=== PATIENT | female | born 1970 | race Caucasian/White ===

== ENCOUNTER 2019-01-13 08:16 | Outpatient (CLI) | payer OTHER ==
--- NOTE | 2019-01-13 14:49 | Ultrasound Report ---
Reason: RIGHT UPPER QUADRANT PAIN Procedure Date: 01/13/2019 Accession Number: [id number] / [id number] Procedure: US - Abdomen Limited CPT Code: FULL RESULT: EXAM: ABDOMEN ULTRASOUND LIMITED, RUQ EXAM DATE: 01/13/2019 08:54 AM. CLINICAL HISTORY: Right upper quadrant pain 3-4 weeks. COMPARISON: None. TECHNIQUE: Real-time scanning was performed with static images obtained. FINDINGS: Liver: The right lobe is mild to moderately echogenic with respect to the right kidney. No focal mass or abnormal blood flow. A Sonja's lobe noted. The right lobe measures 16.7 cm. Main portal vein flow: Hepatopetal. Gallbladder: Normal. No stones, wall thickening, or sonographic Oliver's sign. Biliary System: CBD measures 7 mm. Mild extra hepatic biliary ductal dilatation noted but no obstructing stone or mass visualized. Other: Right kidney measured 11.8 cm and shows no hydronephrosis. No ascites. IMPRESSION: 1. Mild to moderate hepatic fatty infiltration. 2. Mildly prominent common bile duct measuring 7 mm without visualized obstructing stone or mass. 3. Normal gallbladder. [facility]
--- NOTE | 2019-01-14 10:41 | XRAY Report ---
Reason: RIGHT UPPER QUADRANT PAIN Procedure Date: 01/13/2019 Accession Number: [id number] / [id number] Procedure: XR - Chest 2 View X-Ray CPT Code: 58817 FULL RESULT: EXAM: CHEST RADIOGRAPHY EXAM DATE: 01/13/2019 09:02 AM. CLINICAL HISTORY: Right upper quadrant pain. COMPARISON: None. TECHNIQUE: 2 views. FINDINGS: Lungs/Pleura: No focal opacities evident. No pleural effusion. No pneumothorax. Normal volumes. Mediastinum: Heart and mediastinal contours are unremarkable. Other: None. IMPRESSION: Normal 2-view chest radiography. [facility]
== END 2019-01-13 08:17 | disposition home or self-care (01) ==
LOC: DI 08:16
PROVIDERS: ATTEND Nurse Practitioner Family
DX: R10.11 Right upper quadrant pain (principal); K76.0 Fatty (change of) liver, not elsewhere classified
CPT/HCPCS: 71046; 76705

== ENCOUNTER 2023-08-14 16:58 | Outpatient (CLI) | payer BC, OTHER ==
--- NOTE | 2023-08-14 18:04 | XRAY Report ---
PROCEDURE: Knee 3 View RT INDICATIONS: CONTUSION OF RIGHT KNEE TECHNIQUE: 3 views of the knee(s) were acquired. COMPARISON: None. FINDINGS: Bones: There is subtle cortical lucency in the anterior tibial plateau, without displacement Soft tissues: Large knee joint effusion. No suspicious soft tissue calcifications or masses. IMPRESSION: Subtle cortical lucency in the anterior to a plateau, at the site of pain. Large knee joint effusion. Findings are concerning for a minimally displaced fracture. Consider CT for confirmation. Reviewed by: Roberto Nicole on 08/14/2023 5:03 PM [facility] Approved by: Roberto Nicole on 08/14/2023 5:03 PM [facility] Station ID: [id number]
== END 2023-08-14 23:59 | disposition home or self-care (01) ==
LOC: DI.S 16:58
PROVIDERS: ATTEND Physician Assistant Medical
DX: S80.01XA Contusion of right knee, initial encounter (principal); M25.461 Effusion, right knee; R93.6 Abnormal findings on diagnostic imaging of limbs

== ENCOUNTER 2023-08-21 16:32 | Outpatient (CLI) | payer BC ==
--- NOTE | 2023-08-22 11:08 | MRI Report ---
PROCEDURE: KNEE WO - RT INDICATIONS: FX RIGHT KNEE TECHNIQUE: Noncontrast sagittal PD fast spin echo and T2 fast spin echo with fat saturation, sagittal 3-D gradie nt sequence with fat saturation; coronal T1 spin echo and PD fast spin echo with fat saturation, and axial PD fast spin echo with fat saturation through the knee. COMPARISON: Right knee radiograph dated 08/14/2023. FINDINGS: Image quality: Excellent. Menisci: Oblique tear involving posterior horn of medial meniscus is seen extending to inferior artic ulating surface. There is no lateral meniscal tear. The meniscal root ligaments appear intact. Cruciate ligaments: The anterior similar ligament is mildly thickened. The posterior cruciate ligame nt is intact. Medial structures: The medial collateral ligament appears mildly thickened at its femoral insertion. Visualized portions of the pes anserinus tendons appear normal. No abnormal bursal fluid. Lateral structures: The lateral collateral ligament, long and short heads of the biceps femoris tend on appear thickened. The popliteus tendon appears normal. Iliotibial band appears normal. Anterior structures: The quadriceps and patellar tendons appear intact. Patellar alignment is lina l. No femoral trochlear dysplasia or ventral trochlear prominence. No edema in the infrapatellar fa t pad. Bones and cartilage: There is marrow edema involving proximal tibial shaft extending to anterior aspe ct of lateral tibial plateau with cortical disruption. Minimal 2 mm depression at lateral tibial plat eau fracture site is seen. No other fracture or dislocation. Mild tricompartmental osteoarthritis and low-grade chondromalacia is seen. Joint space: There is large joint effusion with fat fluid level consistent with lipoma hemarthrosis. There is a popliteal cyst measures up to 1.8 x 2.8 x 4.6 cm in size. No gross intra-articular loose bodies. Soft tissue edema and swelling over lateral and posterior aspect of right knee is seen. Lina l appearing synovial plicae are incidentally noted. IMPRESSION: 1. Nondisplaced fracture involving proximal tibial shaft extending to lateral tibial plateau near bas e of tibial spine with up to 2 mm depression at lateral tibial plateau. Mild tricompartmental osteoar thritis and low-grade chondromalacia. No other fracture or dislocation. 2. Large left elbow hemarthrosis. Popliteal cyst as above. No gross loose bodies. 3. Oblique tear involving posterior horn of medial meniscus extending to inferior articulating surfac e. The lateral meniscus is intact. 4. Low-grade ACL, MCL and LCL sprain. No full-thickness ligament rupture. The PCL is intact. Mild dis bean biceps femoris tendinosis. Reviewed by: Ray Chicas MD on 08/22/2023 11:07 AM PST Approved by: Ray Chicas MD on 08/22/2023 11:07 AM PST Station ID: [id number]
== END 2023-08-21 16:33 | disposition home or self-care (01) ==
LOC: DI 16:32
PROVIDERS: ATTEND Internal Medicine
DX: S82.144A Nondisplaced bicondylar fracture of right tibia, initial encounter for closed fracture (principal); M17.11 Unilateral primary osteoarthritis, right knee; M94.261 Chondromalacia, right knee; M71.21 Synovial cyst of popliteal space [Baker], right knee; S83.241A Other tear of medial meniscus, current injury, right knee, initial encounter; S83.421A Sprain of lateral collateral ligament of right knee, initial encounter; S83.411A Sprain of medial collateral ligament of right knee, initial encounter; M67.863 Other specified disorders of tendon, right knee; M25.061 Hemarthrosis, right knee

== ENCOUNTER 2024-04-08 10:35 | Outpatient (CLI) | payer OTHER ==
[2024-04-08 15:08] LABS: BASOPHILS # (AUTO) 0.1 10^3/uL (0.0-0.1); BASOPHILS % (AUTO) 1.8 %; EOSINOPHILS # (AUTO) 0.2 10^3/uL (0.0-0.7); EOSINOPHILS % (AUTO) 4.2 %; HCT - HEMATOCRIT 43.3 % (37.0-47.0); HGB - HEMOGLOBIN 13.9 g/dL (12.0-16.0); LYMPHOCYTES # (AUTO) 1.7 10^3/uL (1.5-3.5); LYMPHOCYTES % (AUTO) 31.1 %; MEAN CORPUSCULAR HEMOGLOBIN 29.9 pg (27.0-31.0); MEAN CORPUSCULAR HGB CONC 32.1 g/dL (32.0-36.0); MEAN CORPUSCULAR VOLUME 93.1 fL (81.0-99.0); MEAN PLATELET VOLUME 11.4 fL (7.9-10.8); MONOCYTES # (AUTO) 0.5 10^3/uL (0.0-1.0); MONOCYTES % (AUTO) 8.2 %; NEUTROPHILS % (AUTO) 54.5 %; PLT - PLATELET COUNT 207 10^3/uL (130-450); RED BLOOD COUNT 4.65 10^6/uL (4.20-5.40); RED CELL DISTRIBUTION WIDTH 12.7 % (12.0-15.0); WHITE BLOOD COUNT 5.5 x10^3/uL (4.8-10.8)
[2024-04-08 15:39] LABS: ESTIMATED AVERAGE GLUCOSE 105 mg/dL (70-100); HEMOGLOBIN A1c% 5.3 % (4.27-6.07)
[2024-04-08 15:40] LABS: ALBUMIN 4.8 g/dL (3.2-5.5); ALBUMIN/GLOBULIN RATIO 1.7 (1.0-2.2); ALKALINE PHOSPHATASE 108 IU/L (42-121); ALT ALANINE AMINOTRANSFERASE 28 IU/L (10-60); AST ASPARTATE AMINOTRANSFERASE 33 IU/L (10-42); BILIRUBIN,TOTAL 0.7 mg/dL (0.2-1.0); BUN - BLOOD UREA NITROGEN 14 mg/dL (6-20); CALCIUM 9.6 mg/dL (8.5-10.3); CARBON DIOXIDE - CO2 27 mmol/L (21-32); CHLORIDE 104 mmol/L (101-111); CHOLESTEROL 224 mg/dL; CREATININE 0.9 mg/dL (0.6-1.3); GFR - MDRD 65 (>89); GLUCOSE 97 mg/dL (74-104); HDL CHOLESTEROL 111 mg/dL; LDL CHOLESTEROL,CALCULATED 100 mg/dL; LDL/HDL RATIO 0.9 (<4.4); SODIUM 138 mmol/L (135-145); TOTAL PROTEIN 7.6 g/dL (6.4-8.9); TRIGLYCERIDES 67 mg/dL; VLDL CHOLESTEROL 13 mg/dL
[2024-04-08 15:41] LABS: THYROID STIMULATING HORMONE 2.16 uIU/mL (0.34-5.60)
[2024-04-09 06:11] LABS: ESTRADIOL 9.4 pg/mL (.)
== END 2024-04-08 10:36 | disposition home or self-care (01) ==
LOC: LAB.S 10:35
PROVIDERS: ATTEND Internal Medicine
DX: N95.1 Menopausal and female climacteric states (principal); R23.2 Flushing; Z13.228 Encounter for screening for other metabolic disorders; Z13.220 Encounter for screening for lipoid disorders; G47.00 Insomnia, unspecified; F41.9 Anxiety disorder, unspecified
CPT/HCPCS: 36415; 80053; 80061; 82670; 83036; 83721; 84144; 84443; 85025